=== PATIENT | male | born 1945 | race Caucasian/White ===

== ENCOUNTER 2020-12-23 06:29 | Day surgery (SDC) | payer OTHER, MEDICARE ==
[2020-12-17 14:59] VITALS: BMI 21.7
[2020-12-23] MEDS ORDERED: KETOROLAC TROMETHAMINE 0.5% EYE DROP 1 DROP DROPS ONE (06:39)
[2020-12-23] MEDS ORDERED: TROPICAMIDE 1% OPHTH SOLN 15 ML BOTTLE ONE (06:39)
[2020-12-23] MEDS ORDERED: OFLOXACIN 0.3% OPHTHALMIC SOLUTION 5 ML BOTTLE ONE (06:39)
[2020-12-23] MEDS ORDERED: PHENYLEPHRINE 2.5% OPHTH SOLN 15 ML BOTTLE ONE (06:39)
[2020-12-23] MEDS ORDERED: CYCLOPENTOLATE HCL 1% OPHTH SOLN 2 ML BOTTLE ONE (06:39)
[2020-12-23] MEDS: KETOROLAC TROMETHAMINE 0.5% EYE DROP 1 DROP DROPS OD SCH ×5 (06:55→07:15)
[2020-12-23] MEDS: OFLOXACIN 0.3% OPHTHALMIC SOLUTION 5 ML BOTTLE OD SCH ×5 (06:55→07:15)
[2020-12-23] MEDS: PHENYLEPHRINE 2.5% OPHTH SOLN 15 ML BOTTLE OD SCH ×5 (06:55→07:15)
[2020-12-23] MEDS: TROPICAMIDE 1% OPHTH SOLN 15 ML BOTTLE OD SCH ×5 (06:55→07:15)
[2020-12-23] MEDS: CYCLOPENTOLATE HCL 1% OPHTH SOLN 2 ML BOTTLE OD SCH ×5 (06:55→07:15)
[2020-12-23 07:07] VITALS: TEMP 97.8
[2020-12-23] MEDS ORDERED: BACITRACIN/POLYMYXIN OPH OINT 3.5 GM TUBE ONE (07:30)
[2020-12-23] MEDS ORDERED: TETRACAINE 0.5% OPHTH SOLN 2 ML BOTTLE ONE (07:31)
[2020-12-23] MEDS ORDERED: POVIDONE-IODINE 5% OPHTHALMIC PREP 30 ML SOLUTION ONE (07:31)
[2020-12-23] MEDS ORDERED: EPI-SHUGARCAINE (EPINEPHRINE 0.025% & LIDOCAINE-PF 0.75%) 4ML ONE (07:31)
[2020-12-23] MEDS ORDERED: BETAXOLOL HCL 0.25% OPHTHALMIC 10 ML DROPSBTL ONE (07:31)
[2020-12-23] MEDS ORDERED: EPINEPHrine/PF 1 MG/1 ML (1:1,000) AMPULE ONE (07:31)
[2020-12-23] MEDS ORDERED: NEO/POLYMYX B SULF/DEXAMETH OPHTHALMIC 5ML BOTTLE ONE (07:32)
[2020-12-23] MEDS ORDERED: MIDAZOLAM HCL 2 MG/2 ML SINGLE DOSE VIAL ONE ×2 (07:47→08:44)
[2020-12-23] MEDS ORDERED: ACETAMINOPHEN 325 MG TABLET (FP) PO PRN (09:25)
[2020-12-23 09:55] VITALS: BP 105/67; PULSE 66
== END 2020-12-23 10:05 | disposition home or self-care (01) ==
LOC: FASU 06:29
PROVIDERS: ATTEND Ophthalmology
PROC: 08RJ3JZ Replacement of Right Lens with Synthetic Substitute, Percutaneous Approach (ICD-10-PCS; principal; 2020-12-23 08:49)
DX: H26.9 Unspecified cataract (principal)

== ENCOUNTER 2021-01-05 12:33 | Inpatient (IN) | payer OTHER, MEDICARE ==
[2021-01-05] MEDS ORDERED: SODIUM CHLORIDE 0.9% 500 ML INFUS.BAG IV ONE (13:20)
[2021-01-05 13:36] LABS: BASO % 1.4 % (0-2.0); EOS % 4.5 % (0-4.5); HEMATOCRIT 46.2 % (35.4-49); HEMOGLOBIN 15.6 GM/dl (11.7-16.9); LYMPH % 21.5 % (8-40); MCH 36.2 pg (25.7-33.7); MCHC 33.9 g/dl (32.0-35.9); MEAN CELL VOLUME 106.9 fl (80-96); MONO % 13.1 % (3.8-10.2); NEUT % 59.5 % (42.8-82.8); PLATELET COUNT 157 K/MM3 (134-434); RBC 4.32 M/mm3 (4.00-5.60); RDW 12.9 % (11.9-15.9); WHITE BLOOD COUNT 5.2 K/mm3 (4.0-10.8)
[2021-01-05 13:38] LABS: ALBUMIN 3.9 g/dl (3.4-5.0); BILIRUBIN,TOTAL 0.5 mg/dl (0.2-1); CALCIUM 9.3 mg/dl (8.5-10); CREATININE 0.8 mg/dl (0.55-1.3); TOT PROT 6.2 g/dl (6.4-8.2)
[2021-01-05] MEDS ORDERED: dilTIAZem HCL 50 MG/10 ML - 10 ML VIAL IVPUSH ONE ×2 (13:48→14:25)
[2021-01-05] MEDS ORDERED: dilTIAZem HCL 125 MG/25 ML - 25 ML VIAL ONE ×3 (13:55→16:06)
[2021-01-05 14:32] LABS: INR 0.99 (0.83-1.09)
[2021-01-05 14:35] LABS: ACTIVATED PTT 37.7 SECONDS (25.2-36.5)
[2021-01-05] MEDS ORDERED: WARFARIN NA 10 MG TABLET PO ONE (15:52)
[2021-01-05] MEDS ORDERED: WARFARIN NA 5 MG TABLET PO ONE (15:57)
[2021-01-05] MEDS ORDERED: DILTIAZEM INJECTION 125 MG in SODIUM CHLORIDE 100 ML IVPB SCH (16:00)
[2021-01-05] MEDS ORDERED: dilTIAZem HCL 50 MG/10 ML - 10 ML VIAL ONE (16:06)
[2021-01-05] MEDS ORDERED: METOPROLOL TARTRATE 5 MG/5 ML VIAL IVPUSH PRN (23:22)
[2021-01-06 00:26] VITALS: BMI 22.3
[2021-01-06 06:16] VITALS: TEMP 97.7
[2021-01-06] MEDS ORDERED: APIXABAN 5 MG TABLET PO SCH (10:00)
[2021-01-06] MEDS ORDERED: metoPROLOL SUCCINATE 25 MG TAB.SR.24H (FP) PO SCH (10:00)
[2021-01-06 10:07] LABS: HEMATOCRIT 37.2 % (35.4-49); MCH 37.2 pg (25.7-33.7); MEAN CELL VOLUME 106.2 fl (80-96); MEAN PLT VOLUME 7.6 fl (7.5-11.1); PLATELET COUNT 141 K/MM3 (134-434); RDW 13.5 % (11.9-15.9); WHITE BLOOD COUNT 4.5 K/mm3 (4.0-10.0)
[2021-01-06 10:15] LABS: INR 1.11 (0.83-1.09); PROTHROMBIN TIME (PATIENT) 13.6 SEC (9.7-13.0)
[2021-01-06 10:33] LABS: CALCIUM 8.9 mg/dL (8.5-10.1)
[2021-01-06 10:34] LABS: ALBUMIN 3.2 g/dl (3.4-5.0); BLOOD UREA NITROGEN 10.4 mg/dL (7-18)
[2021-01-06 10:37] LABS: CREATININE 0.8 mg/dL (0.55-1.3)
[2021-01-06 10:39] LABS: BILIRUBIN,TOTAL 0.5 mg/dL (0.2-1); TOT PROT 5.6 g/dl (6.4-8.2)
[2021-01-06 11:42] VITALS: BP 100/71; PULSE 72
== END 2021-01-06 13:16 | disposition home or self-care (01) | DRG 310 ==
LOC: FER 12:33 → J4W 19:30
PROVIDERS: ADMIT Internal Medicine
DX: I48.0 Paroxysmal atrial fibrillation (principal); E03.9 Hypothyroidism, unspecified; E83.119 Hemochromatosis, unspecified; I48.92 Unspecified atrial flutter; I10 Essential (primary) hypertension; E78.5 Hyperlipidemia, unspecified
CPT/HCPCS: 36415; 71045-TC-FY; 80053; 84443; 84484; 85025; 85027; 85610; 85730; 93005; 93010; 93306-TC; 99285-25; C9803; U0003; U0005

== ENCOUNTER 2021-06-17 07:22 | Day surgery (SDC) | payer OTHER, MEDICARE ==
[2021-06-10 14:55] VITALS: BMI 21.7
[2021-06-17] MEDS ORDERED: PROPOFOL 20 ML ONE ×5 (08:09)
[2021-06-17 08:45] VITALS: TEMP 96.8
[2021-06-17 09:02] VITALS: BP 100/59; PULSE 62
== END 2021-06-17 10:00 | disposition home or self-care (01) ==
LOC: FASU-ENDO 07:22
PROVIDERS: ATTEND Internal Medicine Gastroenterology
PROC: 0DJD8ZZ Inspection of Lower Intestinal Tract, Via Natural or Artificial Opening Endoscopic (ICD-10-PCS; principal; 2021-06-17 08:11)
DX: Z86.010 Personal history of colon polyps (principal); K64.0 First degree hemorrhoids

== ENCOUNTER 2023-07-21 12:13 | Observation (INO) | payer OTHER, MEDICARE ==
[2023-07-21 12:25] VITALS: BMI 25.7
[2023-07-21 12:53] LABS: HEMATOCRIT 39.9 % (35.4-49); HEMOGLOBIN 13.2 G/dL (11.7-16.9); MCH 35.2 pg (25.7-33.7); MEAN CELL VOLUME 106.6 fl (80-96); MEAN PLT VOLUME 7.4 fl (7.5-11.1); PLATELET COUNT 182.3 10^3/uL (134-434); RBC 3.74 10^6/uL (4.00-5.60); RDW 13.2 % (11.9-15.9); WHITE BLOOD COUNT 4.1 10^3/uL (4.0-10.8)
[2023-07-21] MEDS ORDERED: LACTATED RINGERS SOLUTION 1000 ML INFUS.BAG IV ONE (13:09)
[2023-07-21 13:24] LABS: ALBUMIN 3.8 g/dl (3.4-5.0); BILIRUBIN,TOTAL 0.7 mg/dl (0.2-1); CALCIUM 9.4 mg/dl (8.5-10.1); CREATININE 0.9 mg/dl (0.6-1.3); POTASSIUM 4.5 mmol/L (3.5-5.1)
[2023-07-21] MEDS ORDERED: METOPROLOL TARTRATE 5 MG/5 ML VIAL IVPUSH ONE ×2 (13:57→17:06)
[2023-07-21] MEDS ORDERED: metoPROLOL SUCCINATE 25 MG TAB.SR.24H (FP) PO ONE ×4 (13:57→17:46)
[2023-07-21] MEDS ORDERED: METOPROLOL TARTRATE 5 MG/5 ML VIAL ONE ×2 (14:16→17:46)
[2023-07-21] MEDS ORDERED: ACETAMINOPHEN 325 MG TABLET (FP) PO PRN (16:16)
[2023-07-21] MEDS ORDERED: METOPROLOL TARTRATE 5 MG/5 ML VIAL IVPUSH PRN (16:20)
[2023-07-21] MEDS: APIXABAN 5 MG TABLET PO SCH (21:42)
[2023-07-22 08:39] VITALS: RESP 18
[2023-07-22 08:42] LABS: CREATININE 0.9 mg/dl (0.6-1.3); MAGNESIUM 1.8 mg/dL (1.8-2.4); PHOSPHOROUS 3.3 (2.5-4.9); POTASSIUM 4.2 mmol/L (3.5-5.1)
[2023-07-22] MEDS: APIXABAN 5 MG TABLET PO SCH (09:48)
[2023-07-22] MEDS ORDERED: metoPROLOL SUCCINATE 25 MG TAB.SR.24H (FP) PO SCH (10:00)
[2023-07-22 13:46] VITALS: BP 102/73; PULSE 68; TEMP 98.1
== END 2023-07-22 13:00 | disposition home or self-care (01) ==
LOC: FER 12:13 → FM/S 16:11 → INTOOBSV 16:11 → FM/S 17:08
PROVIDERS: ADMIT Internal Medicine; ATTEND Internal Medicine
PROC: 3E0337Z Introduction of Electrolytic and Water Balance Substance into Peripheral Vein, Percutaneous Approach (ICD-10-PCS; principal; 2023-07-21)
PROC: 3E033GC Introduction of Other Therapeutic Substance into Peripheral Vein, Percutaneous Approach (ICD-10-PCS; 2023-07-21)
DX: I48.0 Paroxysmal atrial fibrillation (principal); K92.9 Disease of digestive system, unspecified; E03.9 Hypothyroidism, unspecified; Z79.01 Long term (current) use of anticoagulants; Z88.8 Allergy status to other drugs, medicaments and biological substances; Z87.891 Personal history of nicotine dependence
CPT/HCPCS: 0241U-QW; 36415; 71045-TC-FY; 80048; 80053; 81003; 83735; 84100; 84443; 84484; 85027; 87086; 93005; 96361; 96374; 96376; 99285-25; G0378